=== PATIENT | female | born 1990 | race Caucasian/White ===

== ENCOUNTER 2024-04-20 10:29 | Outpatient (CLI) | payer BC, SELFPAY ==
--- NOTE | ~2024-04-20 | MR_ITS ---
EXAMINATION: MR cervical spine wo con DATE: 04/20/2024 11:16 INDICATION: 5 years of neck pain TECHNIQUE: Magnetic resonance imaging (MRI) of the cervical spine was performed without intravenous c ontrast. Sequences included sagittal T2-weighted FSE, sagittal T2-weighted FS FSE, sagittal T1-weight ed FSE, axial MERGE and axial T2-weighted FSE. COMPARISON: None FINDINGS: Slight reversal of the normal cervical lordosis. No spondylolisthesis or facet subluxation. Vertebra l body heights are normal. Disc desiccation, annular fissure and mild disc height loss at C5-C6 with minimal associated fibrovascular endplate changes. Marrow signal is otherwise normal. Additional disc desiccation without significant disc height loss at C3-C4 and C4-C5. Schmorl's node along the superi or endplate of C6. Cord signal intensity is normal. Cervical soft tissues are unremarkable. The follo wing disc levels are specifically discussed: C2-C3: The disc does not extend beyond the endplate margin. There is no uncovertebral joint osteoarth ritis. There is moderate left and mild right facet joint osteoarthritis. There is no neural foraminal stenosis. There is no central canal stenosis. C3-C4: The disc does not extend beyond the endplate margin. There is mild bilateral uncovertebral blaine nt osteoarthritis. There is mild bilateral facet joint osteoarthritis. There is no neural foraminal s tenosis. There is no central canal stenosis. C4-C5: Disc is minimally bulging. There is mild left uncovertebral joint osteoarthritis. There is mil d bilateral facet joint osteoarthritis. There is no neural foraminal stenosis. There is no central ca nal stenosis. C5-C6: Disc is bulging. There is mild right and moderate left uncovertebral joint osteoarthritis. The re is mild bilateral facet joint osteoarthritis. There is mild left neural foraminal stenosis. There is mild central canal stenosis. C6-C7: Small central disc protrusion. There is mild left uncovertebral joint osteoarthritis. There is mild bilateral facet joint osteoarthritis. There is mild left neural foraminal stenosis. There is no central canal stenosis. C7-T1: The disc does not extend beyond the endplate margin. There is no uncovertebral joint osteoarth ritis. There is mild bilateral facet joint osteoarthritis. There is no neural foraminal stenosis. The re is no central canal stenosis. IMPRESSION: 1. Minimal to mild cervical spondylosis most prominent at C5-C6. Reviewed, dictated and finalized at location A.
--- NOTE | ~2024-04-20 | XR_ITS ---
EXAMINATION: XR_[id number]_CR DATE: 04/20/2024 11:56 INDICATION: Multiple joint pain TECHNIQUE: Standing AP and lateral views of the right knee were obtained. COMPARISON: None. FINDINGS: Alignment is normal. No fracture. Joint spaces are normal. No right knee joint effusion. Soft tissues are unremarkable. IMPRESSION: 1. Negative right knee radiographs. Reviewed, dictated and finalized at location A.
--- NOTE | ~2024-04-20 | XR_ITS ---
EXAMINATION: XR_[id number]_CR DATE: 04/20/2024 11:56 INDICATION: Multiple joint pain TECHNIQUE: Standing AP and lateral views of the left knee were obtained. COMPARISON: None. FINDINGS: Alignment is normal. No fracture. Joint spaces are normal. No left knee joint effusion. Soft tissues are unremarkable. IMPRESSION: 1. Negative left knee radiographs. Reviewed, dictated and finalized at location A.
--- NOTE | ~2024-04-20 | XR_ITS ---
EXAMINATION: XR ankle LT 2V, XR ankle RT 2V, XR foot LT 2V, XR foot RT 2V DATE: 04/20/2024 11:56 INDICATION: Multiple joint pain TECHNIQUE: 1. Anteroposterior and lateral view of the left ankle were obtained. 2. Dorsoplantar and lateral views of the left foot were obtained. 3. Anteroposterior and lateral view of the right ankle were obtained. 4. Dorsoplantar and lateral views of the right foot were obtained. COMPARISON: None. FINDINGS: Left foot and ankle: Alignment of the foot and ankle is normal. No fracture. Joint spaces are well maintained. Small plant ar calcaneal spur No ankle joint effusion. The soft tissues are unremarkable. Right foot and ankle: Alignment of the foot and ankle is normal. No fracture. Joint spaces are well maintained. Small plant ar calcaneal spur. No ankle joint effusion. The soft tissues are unremarkable. IMPRESSION: 1. Bilateral small plantar calcaneal spurs. Otherwise unremarkable bilateral foot and ankle radiograp hs. Reviewed, dictated and finalized at location A. IMPRESSION: 1. Bilateral small plantar calcaneal spurs. Otherwise unremarkable bilateral fo ot and ankle radiographs. IMPRESSION: 1. Bilateral small plantar calcaneal spurs. Otherwise unremarkable bilateral fo ot and ankle radiographs. IMPRESSION: 1. Bilateral small plantar calcaneal spurs. Otherwise unremarkable bilateral fo ot and ankle radiographs.
--- NOTE | ~2024-04-20 | XR_ITS ---
EXAMINATION: XR elbow LT 2V DATE: 04/20/2024 11:56 INDICATION: Multiple joint pain TECHNIQUE: Anteroposterior and lateral views of the left elbow were obtained. COMPARISON: None. FINDINGS: Alignment is normal. No fracture or joint effusion. Joint spaces are normal. Soft tissues are unremar kable. IMPRESSION: 1. Negative left elbow radiographs. Reviewed, dictated and finalized at location A.
--- NOTE | ~2024-04-20 | XR_ITS ---
EXAMINATION: XR elbow RT 2V DATE: 04/20/2024 11:56 INDICATION: Multiple joint pain TECHNIQUE: Anteroposterior and lateral views of the right elbow were obtained. COMPARISON: None. FINDINGS: Alignment is normal. No fracture or joint effusion. Joint spaces are normal. Soft tissues are unremar kable. IMPRESSION: 1. Negative right elbow radiographs. Reviewed, dictated and finalized at location A.
--- NOTE | ~2024-04-20 | MR_ITS ---
EXAMINATION: MR lumbar spine wo con DATE: 04/20/2024 11:21 INDICATION: Low back pain TECHNIQUE: Magnetic resonance imaging (MRI) of the lumbar spine was performed without intravenous con trast. Sequences included sagittal T2-weighted FSE, sagittal T2-weighted FS FSE, sagittal T1-weighted FSE, and axial T2-weighted FSE. COMPARISON: None FINDINGS: Alignment is normal. Vertebral body heights are normal. Normal marrow signal. Disc desiccation and m ild disc height loss with annular fissure at L4-L5. Remaining discs are normal. The conus medullaris terminates at T12-L1. There is normal signal in the caudal spinal cord. Paravertebral soft tissues ar e unremarkable. The following disc levels are specifically discussed: T12-L1: The disc does not extend beyond the endplate margin. There is mild bilateral facet joint oste oarthritis. There is no neural foraminal stenosis. There is no central canal stenosis. L1-L2: The disc does not extend beyond the endplate margin. There is mild bilateral facet joint osteo arthritis. There is no neural foraminal stenosis. There is no central canal stenosis. L2-L3: Minimal bilateral foraminal zone disc protrusions. There is mild bilateral facet joint osteoar thritis. There is minimal bilateral neural foraminal stenosis. There is no central canal stenosis. L3-L4: Disc is minimally bulging. There is mild bilateral facet joint osteoarthritis. There is mild b ilateral neural foraminal stenosis. There is no central canal stenosis. L4-L5: Disc is bulging with superimposed annular fissure and small central left paracentral disc prot rusion. There is mild bilateral facet joint osteoarthritis. There is moderate left and mild to modera te right neural foraminal stenosis. There is mild central canal stenosis along with mild narrowing of the left lateral recess. L5-S1: Small bilateral foraminal zone disc protrusions. There is mild to moderate bilateral facet blaine nt osteoarthritis. There is mild bilateral neural foraminal stenosis. There is no central canal steno sis. IMPRESSION: 1. Minimal to mild lumbar spondylosis most prominent at L4-L5. Reviewed, dictated and finalized at location A.
--- NOTE | ~2024-04-20 | XR_ITS ---
EXAMINATION: XR hip BI wo pelvis DATE: 04/20/2024 11:56 INDICATION: Multiple joint pain TECHNIQUE: Anteroposteriorand frog-leg lateral views of both the left and right hips were obtained. COMPARISON: None. FINDINGS: Bone alignment is normal. No fracture or suspected osteonecrosis. Mild right sacroiliac osteoarthriti s. Mild osteoarthritis at the right hip with minimal superolateral joint space narrowing and small ma rginal osteophytes about the femoral head. Left hip and sacroiliac joint spaces are normal. Phlebolit h in the left hemipelvis. Soft tissues are otherwise unremarkable. IMPRESSION: 1. Mild right hip and sacroiliac osteoarthritis. Reviewed, dictated and finalized at location A.
== END 2024-04-20 10:30 | disposition home or self-care (01) ==
PROVIDERS: PCP Family Medicine; Visit Provider Internal Medicine Rheumatology
DX: M47.816 Spondylosis without myelopathy or radiculopathy, lumbar region (principal); M47.812 Spondylosis without myelopathy or radiculopathy, cervical region; M77.32 Calcaneal spur, left foot; M77.31 Calcaneal spur, right foot; M16.11 Unilateral primary osteoarthritis, right hip; M47.898 Other spondylosis, sacral and sacrococcygeal region; M25.571 Pain in right ankle and joints of right foot; M25.572 Pain in left ankle and joints of left foot; M25.552 Pain in left hip; M25.551 Pain in right hip
CPT/HCPCS: 72141; 72148; 73070; 73521; 73560; 73600; 73620